=== PATIENT | male | born 1950 | race Caucasian/White ===

== ENCOUNTER 2016-05-29 05:58 | Inpatient (IN) | payer BC ==
[2016-04-23 09:04] VITALS: BMI 33.0
--- NOTE | 2016-04-23 09:46 | PAT Medication Instructions ---
Service Date Apr 23, 2016. Current Home Medication List Amlodipine (Norvasc), 10 MG PO QPM Atorvastatin (Lipitor), 20 MG PO HS Lisinopril (Zestril), 20 MG PO QAM Metoprolol Succ (Toprol Xl) (Toprol-Xl), 50 MG PO QAM Tramadol (Ultram), 50 MG PO BID [Vitapulse], 1 TAB PO QAM Medication Instructions For Your Scheduled Surgery - Hold the following medications 7 days prior to surgery: Vitapulse 1 TAB PO QAM - Hold the following medications the morning of surgery: Lisinopril (Zestril), 20 MG PO QAM - Take the following medications the morning of surgery with a sip of water: Tramadol (Ultram), 50 MG PO BID (can take up to four hours prior to surgery if needed) Metoprolol Succ (Toprol Xl) (Toprol-Xl), 50 MG PO QAM - Take the following medications as scheduled the night before surgery: Tramadol (Ultram), 50 MG PO BID Atorvastatin (Lipitor), 20 MG PO HS Amlodipine (Norvasc), 10 MG PO QPM If you have any questions please call us at [phone] or [phone] ( Madeleine) or [phone]
[2016-04-23 10:44] LABS: BASO % 0.7 %; BASO ABS # 0.03 K/uL (0-0.2); COMPLETE YES; EOS % 0.7 %; HEMATOCRIT 42.5 % (42-52); IG% 0.2 %; LYMPH % 25.4 %; MEAN CELL VOLUME 95.1 fL (80-100); MEAN CORPUSCULAR HEMOGLOBIN 33.3 pg (25-34); MEAN CORPUSCULAR HGB CONC 35.1 g/dl (32-36); MEAN PLATELET VOLUME 9.9 fL (7.4-10.4); MONO % 15.7 %; NEUT % 57.3 %; PLATELET COUNT 241 K/uL (130-400); RED BLOOD COUNT 4.47 M/uL (4.7-6.1); WHITE BLOOD COUNT 4.33 K/uL (4.8-10.8)
--- NOTE | 2016-04-23 10:45 | DIAGNOSTIC IMAGING REPORT ---
CHEST PREADMISSION(PA/LAT) CLINICAL HISTORY: Preoperative evaluation. COMPARISON STUDY: Chest radiograph March 14, 2015. FINDINGS: Lung volumes are normal. There is no pneumothorax or pleural effusion. There is no consolidation or evidence of pulmonary edema. Healed left rib fractures are noted. Cardiomediastinal silhouette is normal. IMPRESSION: No acute cardiopulmonary findings. Electronically signed by: Kyree Ignacio M.D. 04/23/2016 10:44 AM
[2016-04-23 10:57] LABS: PARTIAL THROMBOPLASTIN RATIO 1.2; PROTHROMBIN TIME (PATIENT) 10.6 SECONDS (9.0-12.0)
[2016-04-23 11:18] LABS: BUN/CREATININE RATIO 20.1 (10-20); CALCIUM 9.6 mg/dl (8.5-10.1); CREATININE 0.88 mg/dl (0.60-1.40); POTASSIUM 4.6 mmol/L (3.5-5.1)
[2016-04-23 11:55] LABS: ESTIMATED AVERAGE GLUCOSE 108 mg/dl; HA1C FLAG Normal (Normal)
--- NOTE | 2016-05-28 10:36 | HISTORY & PHYSICAL EXAMINATION ---
DATE OF ADMISSION: 05/29/2016 CHIEF COMPLAINT: Left hip pain. HISTORY OF PRESENT ILLNESS: The patient is a 65-year-old gentleman with known osteoarthritis about his left hip. He had a previous right total hip arthroplasty in 2015. He has done well after this procedure. He continues to have significant pain and disability with his left hip and now desires to proceed with left total hip arthroplasty. PAST MEDICAL HISTORY: Hypertension, hypercholesterolemia, irregular heartbeat, sleep apnea, osteoarthritis, hiatal hernia, obesity. PAST SURGICAL HISTORY: Cardiac ablation for afib, low back surgery, right hip as above. MEDICATIONS: Metoprolol 50 mg daily, atorvastatin 20 mg daily, amlodipine 10 mg daily, lisinopril 20 mg daily, tramadol p.r.n. ALLERGIES: No known drug allergies. SOCIAL HISTORY: He states significant weekly alcohol consumption. REVIEW OF SYSTEMS: Noncontributory. PHYSICAL EXAMINATION: GENERAL: Well-nourished, well-developed male who appears his stated age. HEENT: Normocephalic, atraumatic, extraocular movements intact, oropharynx pink and moist. NECK: Supple without adenopathy. LUNGS: Clear to auscultation bilaterally. HEART: Regular rate and rhythm. ABDOMEN: Soft, nontender, nondistended, obese. EXTREMITIES: The upper extremities are within normal limits. The left hip demonstrates limited range of motion. There is limitation of active and passive internal/external rotation with pain. X-RAYS: X-rays were reviewed. He has severe osteoarthritis about the left hip with complete loss of the joint space. There is collapse of the femoral head. There are osteophytes about the femoral head and acetabulum. ASSESSMENT: Left hip degenerative joint disease. PLAN: Risks versus benefits were discussed. Consent was obtained. The patient's primary care physician is Dr. Zhang from [place]. His route manager is Dr. Tang from [facility]. Will proceed with a left total hip arthroplasty upon preoperative workup and medical clearance.
[~2016-05-29] VITALS: Ht 175.3 cm; Wt 103.9 kg
[2016-05-29] VITALS (10 sets, daily range): BP systolic 58–128; BP diastolic 48–75; PULSE 59–67; TEMP 36.5–36.9; O2SAT 94–98; Ht 175.3 cm; Wt 103.9 kg
[~2016-05-29 05:58] MED LIST: AMLO-114 PO; ATOR-22 PO; LISI-725 PO; METO50TA7 PO; TRAM-10 PO; VITAPULSE PO
[2016-05-29] MEDS ORDERED: ROPIVACAINE 5MG/ML 30 ML 150 MG, BUPIVACAINE/EPINEPHR 0.5% MPF 30 ML, KETOROLAC TROMETH... INFIL SCH ×7 (06:00)
[2016-05-29] MEDS ORDERED: TRANEXAMIC ACID INJ 1,000 MG in SODIUM CHLORIDE 0.9% 100ML 100 ML IV SCH (06:00)
[2016-05-29] MEDS ORDERED: GABAPENTIN 300 MG CAP PO SCH ×2 (06:00)
[2016-05-29] MEDS ORDERED: DEXAMETHASONE 4 MG TAB PO SCH ×2 (06:00)
[2016-05-29] MEDS ORDERED: LACTATED RINGER'S 500 ML IV SCH (06:00)
[2016-05-29] MEDS ORDERED: ACETAMINOPHEN 500 MG TAB PO SCH ×2 (06:00)
[2016-05-29] MEDS ORDERED: CEFAZOLIN 2000 MG/60 ML D5W 60 ML IV SCH ×2 (06:00)
[2016-05-29] MEDS ORDERED: LACTATED RINGER'S 1000ML IV SCH ×4 (06:00→10:45)
[2016-05-29] MEDS ORDERED: METOCLOPRAMIDE HCL 10 MG TAB PO SCH ×2 (06:00)
[2016-05-29] MEDS ORDERED: CeleBREX 200 MG CAP PO SCH ×2 (06:00)
[2016-05-29] MEDS ORDERED: FAMOTIDINE 20 MG TAB PO SCH ×2 (06:00)
[2016-05-29] MEDS ORDERED: SCOPOLAMINE 1.5 MG TDSY TD SCH (06:00)
[2016-05-29] MEDS ORDERED: BUPIVACAINE 0.5 % 5 MG/1 ML PF 10ML VIAL ONE (06:36)
[2016-05-29] MEDS ORDERED: MIDAZOLAM HCL 1 MG/ML 2ML VIAL ONE (06:50)
[2016-05-29] MEDS ORDERED: FENTANYL CITRATE INJ 50 MCG/1 ML 2 ML VIAL ONE (06:50)
--- NOTE | 2016-05-29 06:50 | History & Physical Bridge Note ---
H&P Re-Evaluation Bridge Note: I have examined the patient, reviewed the History & Physical and in the interval since the performance of the History & Physical I have noted the following changes of clinical significance: No changes noted
[2016-05-29] MEDS: TRANEXAMIC ACID INJ 1,000 MG in SODIUM CHLORIDE 0.9% 100ML 100 ML IV SCH ×2 (06:55→11:02)
[2016-05-29] MEDS ORDERED: ORTHO JOINT ANESTHETIC ONE (06:59)
[2016-05-29] MEDS ORDERED: KETOROLAC TROMETHAMINE 30 MG/ML VIAL IV. PRN (07:45)
[2016-05-29] MEDS ORDERED: ATROPINE SULFATE 0.1 MG/ML 5ML SYR IV PRN (07:45)
[2016-05-29] MEDS ORDERED: ONDANSETRON INJ 2 MG/ML 2 ML VIAL IV PRN ×2 (07:45→09:00)
[2016-05-29] MEDS ORDERED: HYDROmorphone INJ 2 MG/ML SYR/VIAL IV PRN (07:45)
[2016-05-29] MEDS ORDERED: EpHEDrine SULFATE INJ 50 MG/ML AMP IV PRN (07:45)
[2016-05-29] MEDS ORDERED: PHENYLEPHRINE 100MCG/ML 5ML SYR IV PRN (07:45)
[2016-05-29] MEDS ORDERED: PROPOFOL IV EMULSION 10 MG/ML 20 ML VIAL IV ONE (07:56)
--- NOTE | 2016-05-29 08:18 | [facility] Post Operative Brief Note ---
Immediate Operative Summary Operative Date May 29, 2016. Pre-Operative Diagnosis Left Hip degenerative Joint Disease Post-Operative Diagnosis Same as Preop Procedure(s) Performed Left Total Hip Arthroplasty Uncemented Surgeon Dr. Hernandes Cable Engineer Outside Plant Surgeon(s) Zaheer Chandler PA-C Estimated Blood Loss 100 ML Findings severe oa Specimens A. Left Femoral Head Disposition Recovery Room / PACU
[2016-05-29] MEDS ORDERED: POVIDONE-IODINE OP SOLN 30 ML BTL TOP ONE (08:20)
[2016-05-29] MEDS ORDERED: BACITRACIN 50000 UNIT VIAL IR ONE (08:24)
--- NOTE | 2016-05-29 08:30 | OPERATIVE REPORT ---
DATE OF OPERATION: 05/29/2016 PREOPERATIVE DIAGNOSIS: Osteoarthritis left hip. POSTOPERATIVE DIAGNOSIS: Osteoarthritis left hip. PROCEDURE: Left connective total hip arthroplasty. SURGEON: Dr. Hernandes. DIRECTOR OF COUNSELING: Zaheer Chandler PA-C. ANESTHESIA: Spinal. COMPLICATIONS: None. OPERATION AND FINDINGS: PROCEDURE: Following induction of adequate spinal anesthesia, the patient was placed in right lateral decubitus position and left Heidi-Langenbeck incision was made. Subcutaneous tissue was sharply dissected. Electrocautery used for hemostasis. The fascia was incised throughout the length of the wound and a ely scissor placed beneath the short external rotators. The pyriformis was tagged with #1 Vicryl. The short external rotators were divided from the posterior aspect of the femur using electrocautery. These were swept posteriorly. A T-capsulotomy incision was made and the hip was dislocated using a combination of flexion, adduction, and internal rotation. Exposure of the femoral neck with old-style Hohmann and a blunt Hohmann was carried out and a femoral rasp was utilized as a guide for making the appropriate level femoral neck cut. This bone fragment was removed and reserved on the back table. Next, attention was turned to the acetabulum where bone hook was used to retract the femur while the offset retractors were placed anterior and posteriorly. A double-angled Hohmann was placed in superior and anterior position exposing the acetabulum nicely. Acetabular labrum as well as posterior capsule elements were removed using a long knife and a long pickup. Fovea centralis was cleared of all soft tissue. Sequential reamings were carried up to a 56 and decision was made to proceed with impaction of a 56 trabecular metal cup. This was impacted and held using a single 35 mm bone screw. The acetabular liner was placed with 15 of elevated posterior wall in the superior and posterior position. Next, attention was turned to the femoral portion of the case where a Bovie and pickup was used to further clear short external rotators from their insertion on the femur. Box osteotome was used to gain access to the femoral canal and the T-handled rasp and a rattail rasp were used to further open and lateral the canal. Sequentially raspings were carried up to a 56 which gave good fit and fill of the proximal femur. A trial reduction was carried out and 6 offset femoral neck component was chosen as the size to be used. A +0 x 36 mm ceramic femoral head was impacted into position, +0 head was utilized. The trial reduction was stable in all degrees of rotation with no [id number] impingement. The hip was dislocated. The trial components were removed and the final femoral stem, neck, and femoral head combination were assembled on the back table and impacted into position. Hip was relocated. Range of motion checked once again successful and the wound was irrigated. The pyriformis repaired to the greater trochanter using #1 Vicryl [id number] suture. A Hemovac drain was placed and the fascia was closed using #1 Vicryl, subcutaneous tissue was closed using 0 Dexon, and skin was closed with larissa. Sterile dressing of Adaptic, 4 x 4's, ABDs, and foam tape was applied. The patient tolerated the procedure well. Due to the complex nature of the procedure, the entire surgery was performed with the operational assistance of Zaheer Chandler PA-C. The dietetic assistant, under direct supervision, was involved in the actual performance of all aspects of the surgical procedure including hemostasis, tissue retraction and incision, instrument management, patient positioning, and wound closure. I attest to the content of the Intraoperative Record and any orders documented therein. Any exceptio ns are noted below.
[2016-05-29] MEDS ORDERED: ALUMINUM/MAGNESIUM/SIMETH (MAALOX MAX) 30 ML UDC PO PRN (09:00)
[2016-05-29] MEDS ORDERED: ZOLPIDEM TARTRATE 5 MG TAB PO PRN (09:00)
[2016-05-29] MEDS ORDERED: TAMSULOSIN HCL 0.4 MG CAP PO PRN (09:00)
[2016-05-29] MEDS ORDERED: METOCLOPRAMIDE HCL INJ 5 MG/ML 2 ML VIAL IV PRN (09:00)
[2016-05-29] MEDS ORDERED: OXYCODONE HCL IR 5 MG TAB (IMMEDIATE RELEASE) PO PRN (09:00)
[2016-05-29] MEDS ORDERED: MAGNESIUM HYDROXIDE SUSP 30 ML UDC PO PRN (09:00)
[2016-05-29] MEDS ORDERED: MoRPHine SULFATE 2 MG/ML CARP IV PRN (09:00)
--- NOTE | 2016-05-29 09:22 | Anesthesiology Progress Note ---
Anesthesia Post Op Note Date & Time May 29, 2016 at 09:21 Vital Signs Pain Intensity: 0 Vital Signs Past 12 Hours Date Time Temp Pulse Resp B/P Pulse Ox O2 Delivery O2 Flow Rate FiO2 05/29/16 09:10 109/60 05/29/16 09:10 109/60 05/29/16 09:08 48 19 05/29/16 09:08 48 19 05/29/16 09:08 50 19 99 05/29/16 09:08 50 19 99 05/29/16 09:03 51 14 05/29/16 09:03 51 14 05/29/16 09:03 54 14 112/68 92 05/29/16 09:03 54 14 112/68 92 05/29/16 08:58 53 14 110/65 94 05/29/16 08:58 53 14 05/29/16 08:58 53 14 110/65 94 05/29/16 08:58 53 14 05/29/16 08:53 59 11 117/63 97 05/29/16 08:53 53 11 05/29/16 08:53 53 11 05/29/16 08:53 59 11 117/63 97 05/29/16 08:49 116/63 05/29/16 08:49 116/63 05/29/16 08:48 36.3 58 12 108/66 96 Room Air 05/29/16 08:48 65 22 05/29/16 08:48 56 22 95 05/29/16 08:48 65 22 05/29/16 08:48 56 22 95 05/29/16 06:44 36.9 66 18 128/75 94 Room Air Notes Mental Status: alert / awake / arousable, participated in evaluation Pt Amnestic to Procedure: Yes Nausea / Vomiting: adequately controlled Pain: adequately controlled Airway Patency, RR, SpO2: stable & adequate BP & HR: stable & adequate Hydration State: stable & adequate Anesthetic Complications: no major complications apparent
--- NOTE | 2016-05-29 09:26 | DIAGNOSTIC IMAGING REPORT ---
SINGLE VIEW PELVIS CLINICAL HISTORY: Postoperative examination. FINDINGS: An AP portable view of the hips and lower pelvis is compared to pelvic radiograph dated 04/05/2015. A right hip arthroplasty is unchanged from previous. There is a new bipolar left hip arthroplasty in near-anatomic alignment. No acute fracture is seen. There are expected postoperative changes overlying the left hip including skin clips, subcutaneous gas, soft tissue swelling, and a surgical drain. IMPRESSION: Expected postoperative findings status post left hip arthroplasty. No acute fracture is seen. Electronically signed by: Sukh Floyd M.D. 05/29/2016 9:25 AM Dictated Date/Time: 05/29/2016 9:24 AM
[2016-05-29] MEDS: PANTOprazole SOD 40 MG TAB PO SCH (12:28)
[2016-05-29] MEDS: MULTIVITAMIN TAB PO SCH (12:28)
[2016-05-29] MEDS ORDERED: MoRPHine SULFATE 10 MG/ML CARP/VIAL IV PRN (13:00)
[2016-05-29] MEDS ORDERED: MoRPHine SULFATE 4 MG/ML 1 ML CARP\\VIAL IV PRN (13:00)
[2016-05-29] MEDS: D5W AND 1/2NSS + 20MEQ KCL 1,000 ML IV SCH ×2 (13:09→23:02)
[2016-05-29] MEDS: METOPROLOL SUCC 50MG EXT REL TAB PO SCH (13:09)
[2016-05-29] MEDS: ASPIRIN 81 MG ECTAB PO SCH ×2 (13:09→20:41)
[2016-05-29] MEDS: DOCUSATE SODIUM 100 MG CAP PO SCH ×2 (13:09→20:41)
[2016-05-29] MEDS: LISINOPRIL 20 MG TAB PO SCH (13:10)
[2016-05-29] MEDS: FERROUS GLUCONATE 324 MG TAB PO SCH ×2 (13:10→18:13)
[2016-05-29] MEDS: KETOROLAC TROMETHAMINE 30 MG/ML VIAL IV. SCH ×2 (14:12→20:20)
[2016-05-29] MEDS: CEFAZOLIN IV 2,000 MG in DEXTROSE 5% 50ML 50 ML IV SCH (15:30)
[2016-05-29] MEDS: ACETAMINOPHEN 500 MG TAB PO SCH (15:31)
[2016-05-29] MEDS ORDERED: CHECK SCOPOLAMINE PATCH PLACEMENT SCH (16:00)
[2016-05-29] MEDS: ATORVASTATIN 20 MG TAB PO SCH (20:41)
[2016-05-29] MEDS: AMLODIPINE BESYLATE 5 MG TAB PO SCH (20:42)
[2016-05-29] MEDS: PREGABALIN 75 MG CAP PO SCH (23:02)
[2016-05-30] MEDS: ACETAMINOPHEN 500 MG TAB PO SCH ×4 (00:25→23:44)
[2016-05-30] MEDS: CEFAZOLIN IV 2,000 MG in DEXTROSE 5% 50ML 50 ML IV SCH (00:25)
[2016-05-30] MEDS: KETOROLAC TROMETHAMINE 30 MG/ML VIAL IV. SCH ×2 (02:56→07:44)
[2016-05-30 03:00] VITALS: BP 122/68; PULSE 52; TEMP 36.7; O2SAT 96
[2016-05-30 06:11] LABS: COMPLETE YES; HEMATOCRIT 26.3 % (42-52); IG% 0.4 %; LYMPH ABS # 1.06 K/uL (1.2-3.4); MEAN CELL VOLUME 95.6 fL (80-100); MEAN CORPUSCULAR HEMOGLOBIN 33.5 pg (25-34); MEAN PLATELET VOLUME 9.9 fL (7.4-10.4); MONO % 18.1 %; NEUT % 67.5 %; PLATELET COUNT 185 K/uL (130-400); RED BLOOD COUNT 2.75 M/uL (4.7-6.1); WHITE BLOOD COUNT 7.57 K/uL (4.8-10.8)
[2016-05-30 06:43] LABS: BUN/CREATININE RATIO 28.6 (10-20); CALCIUM 8.2 mg/dl (8.5-10.1); CREATININE 0.91 mg/dl (0.60-1.40); POTASSIUM 4.4 mmol/L (3.5-5.1)
[2016-05-30 07:30] VITALS: BP 124/69; PULSE 68; TEMP 36.9; O2SAT 98
[2016-05-30] MEDS ORDERED: DEXAMETHASONE INJ 10 MG in SYRINGE 0 ML IV ONE (07:30)
--- NOTE | 2016-05-30 08:12 | Orthopedic Progress Note ---
Orthopedic Progress Note Date of Service May 30, 2016. Subjective Post OP Day: 1 Reports: feeling well Objective N/V intact, dressing C/D/I (Hemovac d/c'd), toes mobile Date Time Temp Pulse Resp B/P Pulse Ox O2 Delivery O2 Flow Rate FiO2 05/30/16 07:30 36.9 68 16 124/69 98 Room Air 05/30/16 03:00 36.7 52 16 122/68 96 Room Air 05/30/16 00:15 Room Air 05/29/16 23:57 36.7 67 16 100/53 95 Room Air 05/29/16 20:48 99/59 05/29/16 20:25 93/58 05/29/16 19:55 36.5 65 18 88/48 98 Room Air 05/29/16 16:05 Room Air 05/29/16 15:20 36.6 62 20 107/65 98 Room Air 05/29/16 13:16 62 16 105/66 98 Nasal Cannula 2.0 05/29/16 12:15 62 16 103/60 97 Nasal Cannula 2.0 05/29/16 11:43 36.7 62 16 110/63 97 2.0 05/29/16 11:15 97 Nasal Cannula 2.0 05/29/16 11:15 36.8 59 16 122/63 97 Nasal Cannula 2.0 05/29/16 11:15 Nasal Cannula 2.0 97 05/29/16 10:55 48 12 05/29/16 10:55 49 12 97 05/29/16 10:50 49 15 05/29/16 10:50 51 15 88 05/29/16 10:45 53 14 05/29/16 10:45 53 14 92 05/29/16 10:43 112/61 05/29/16 10:40 49 13 05/29/16 10:40 43 13 96 05/29/16 10:35 55 15 05/29/16 10:35 56 15 90 05/29/16 10:30 48 16 05/29/16 10:30 48 16 90 05/29/16 10:28 103/72 05/29/16 10:25 44 14 98 05/29/16 10:25 49 14 05/29/16 10:24 51 28 97 05/29/16 10:24 53 28 05/29/16 10:19 51 13 93 05/29/16 10:19 50 13 05/29/16 10:14 53 14 98 05/29/16 10:14 49 14 05/29/16 10:13 110/64 05/29/16 10:09 48 14 05/29/16 10:09 51 14 96 05/29/16 10:04 52 13 97 05/29/16 10:04 50 13 05/29/16 10:03 108/55 05/29/16 09:59 48 14 05/29/16 09:59 51 14 91 05/29/16 09:58 100/58 05/29/16 09:54 48 13 92 05/29/16 09:54 47 13 05/29/16 09:53 102/58 05/29/16 09:49 48 16 05/29/16 09:49 51 16 97 05/29/16 09:48 99/59 05/29/16 09:46 52 15 97 05/29/16 09:46 53 15 05/29/16 09:43 113/59 05/29/16 09:41 57 15 05/29/16 09:41 58 15 94 05/29/16 09:39 109/61 05/29/16 09:36 49 13 05/29/16 09:36 53 13 97 05/29/16 09:33 110/62 05/29/16 09:31 51 13 93 05/29/16 09:31 52 13 05/29/16 09:29 112/66 05/29/16 09:26 46 12 05/29/16 09:26 51 12 98 05/29/16 09:24 36.4 52 18 114/60 95 Nasal Cannula 2 05/29/16 09:23 114/60 05/29/16 09:21 56 14 97 05/29/16 09:21 46 14 05/29/16 09:18 120/59 05/29/16 09:16 52 17 05/29/16 09:16 53 17 99 05/29/16 09:13 107/65 05/29/16 09:12 109/60 05/29/16 09:11 47 23 05/29/16 09:11 51 23 98 05/29/16 09:10 109/60 05/29/16 09:10 109/60 05/29/16 09:08 48 19 1/26/17 09:08 48 19 05/29/16 09:08 50 19 99 05/29/16 09:08 50 19 99 05/29/16 09:03 51 14 05/29/16 09:03 51 14 05/29/16 09:03 54 14 112/68 92 05/29/16 09:03 54 14 112/68 92 05/29/16 08:58 53 14 110/65 94 05/29/16 08:58 53 14 05/29/16 08:58 53 14 110/65 94 05/29/16 08:58 53 14 05/29/16 08:53 59 11 117/63 97 05/29/16 08:53 53 11 05/29/16 08:53 53 11 05/29/16 08:53 59 11 117/63 97 05/29/16 08:49 116/63 05/29/16 08:49 116/63 05/29/16 08:48 36.3 58 12 108/66 96 Room Air 05/29/16 08:48 65 22 05/29/16 08:48 56 22 95 05/29/16 08:48 65 22 05/29/16 08:48 56 22 95 Laboratory Results 24 Hours: Test 05/30/16 05:20 White Blood Count 7.57 K/uL Red Blood Count 2.75 M/uL Hemoglobin 9.2 g/dL Hematocrit 26.3 % Mean Corpuscular Volume 95.6 fL Mean Corpuscular Hemoglobin 33.5 pg Mean Corpuscular Hemoglobin Concent 35.0 g/dl Platelet Count 185 K/uL Mean Platelet Volume 9.9 fL Neutrophils (%) (Auto) 67.5 % Lymphocytes (%) (Auto) 14.0 % Monocytes (%) (Auto) 18.1 % Eosinophils (%) (Auto) 0.0 % Basophils (%) (Auto) 0.0 % Neutrophils # (Auto) 5.11 K/uL Lymphocytes # (Auto) 1.06 K/uL Monocytes # (Auto) 1.37 K/uL Eosinophils # (Auto) 0.00 K/uL Basophils # (Auto) 0.00 K/uL Assessment & Plan Assessment: 65 yo male stable POD #1 s/p left KORY, acute blood loss anemia Plan: 1. Med management 2. DVT prophylaxis- ASA, TEDs, SCDs 3. PT/OT 4. D/C planning- home w/ HH
[2016-05-30] MEDS ORDERED: RXC5 PO (08:14)
[2016-05-30] MEDS ORDERED: ACET-1138 PO (08:14)
[2016-05-30] MEDS ORDERED: ONDA8TAB12 PO (08:14)
[2016-05-30] MEDS ORDERED: ASPEC81 PO (08:14)
[2016-05-30] MEDS ORDERED: CLB200 PO (08:14)
--- NOTE | 2016-05-30 08:16 | Discharge Instructions ---
Discharge Instructions Admission Reason for Admission: Left Hip Osteoarthritis Discharge Discharge Diagnosis / Problem: Left hip arthritis Discharge Goals Goal(s): Decrease discomfort, Improve function Activity Recommendations Activity Limitations: as noted below . Instructions / Follow-Up Instructions / Follow-Up ACTIVITY RECOMMENDATIONS: SELF CARE INSTRUCTIONS AFTER TOTAL HIP REPLACEMENT Until the incision and soft tissues around your hip have healed, there is a possibility that the hip prosthesis could dislocate. A. Observe the following precautions to prevent dislocation: 1. Don't bend your hip greater than 90 degrees. 2. Avoid crossing your legs or ankles while standing or lying. 3. Sit with your feet placed 6 inches apart. 4. When sitting, keep your knees below your hips. Sit on a firm surface, avoid deep, soft chairs and couches. Use an elevated toilet seat in the bathroom. 5. Don't bend over at the waist. Use a long handled shoehorn and a sock aid to help you put on your shoes and socks. A sr. director can help you fruit picker machine operator objects that are too high or too low to reach. 6. Keep car riding to a minimum for at least one month after surgery. B. Your balance may be shaky for a while. Use crutches or a walker until directed by your doctor. C. Use hand rails when walking on stairs. D. Wear low heeled shoes with non-slip soles. E. Be sure that your floors are free of things that could trip you - throw rugs , electrical cords, small objects. Avoid wet and waxed floors, especially with crutches and canes. F. Try to walk several times a day with rest periods between. G. Continue with all the exercises taught to you in the hospital. Again, make walking a part of your daily routine. SPECIAL CARE INSTRUCTIONS: VERY IMPORTANT TO READ AND REVIEW A. You may still be at risk for phlebitis and blood clots. 1. Wear surgical stockings (MERNA hose) for 2 weeks after surgery to improve circulation and reduce swelling. 2. Take Aspirin 81mg twice daily for 4 weeks or as directed by your doctor. This is your blood thinner. 3. High risk patients may be prescribed a stronger blood thinner if necessary. 4. If you are on Coumadin normally, your family doctor/director data analytics should monitor your blood work. Expect a phone call the day of or the day after bloodwork is drawn to adjust your dosage. B. You must take antibiotics before having dental work, bladder, bowel and other surgery. Your doctor will provide you with a permanent card to carry describing precautions. C. Call [facility] if you have a fever, redness or swelling around the incision, cloudy drainage from incision, or sudden increase in pain in your hip, not relieved by your regular pain medication. D. Please call the office at if you have any concerns or questions about your operation or recovery. * YOU MAY SHOWER, NO TUB BATHS UNTIL CLEARED BY YOUR DOCTOR. * WEAR MERNA HOSE 20 HOURS PER DAY FOR 2 WEEKS. * YOU SHOULD USE A WALKER OR CRUTCHES FOR 2-4 WEEKS. THIS WILL HELP PREVENT STRAIN ON YOUR HIP MUSCLE AND ALLOW IT TO HEAL PROPERLY. YOU MAY WEAN TO A CANE TOLERATED. * MOST PATIENTS WILL HAVE HOME NURSING FOR THERAPY. IF YOU DECIDE TO DO OUTPATIENT PHYSICAL THERAPY, PLEASE SCHEDULE THIS 3 TIMES PER WEEK. Silverlon- This is a large adhesive bandage that contains silver ions. This helps your incision heal by fighting off bacteria and protecting it from the outside environment. You are permitted to shower with this dressing. This will remain on your incision for 7 days and then should be removed. Some visible blood or drainage through the dressing window is normal. If there is significant drainage or leaking noted before the 7 days notify your doctor's office immediately. Once removed, keep incision clean and dry. If there is any drainage or redness noted, please call your surgeon. FOLLOW UP VISIT: If appointment is not already scheduled: Please call [facility] to make a follow-up appointment for 2 weeks after your surgery at . Current Hospital Diet Patient's current hospital diet: Regular Diet Discharge Diet Recommended Diet: Regular Diet Procedures Procedures Performed: Left Total Hip Arthroplasty Uncemented Pending Studies Studies pending at discharge: no Laboratory Results Hemoglobin A1c Test 04/23/16 09:50 Range/Units Estimated Average Glucose 108 mg/dl Hemoglobin A1c 5.4 4.5-5.6 % Medical Emergencies . Who to Call and When: Medical Emergencies: If at any time you feel your situation is an emergency, please call 911 immediately. . Non-Emergent Contact Non-Emergency issues call your: Surgeon Call Non-Emergent contact if: temperature is above 101.5, your pain is not controlled, wound has increased drainage, wound has increased redness . "Provider Documentation" section prepared by Zaheer Chandler PA-C. VTE Core Measure Inpt VTE Proph given/why not?: Other Anticoagulation (ASA 81mg bid), T.E.D. Stockings, SCD's
--- NOTE | 2016-05-30 08:48 | Anesthesiology Progress Note ---
Anesthesia Post Op Note Date & Time May 30, 2016 at 08:47 Vital Signs Pain Intensity: 1.0 Vital Signs Past 12 Hours Date Time Temp Pulse Resp B/P Pulse Ox O2 Delivery O2 Flow Rate FiO2 05/30/16 07:45 Room Air 05/30/16 07:30 36.9 68 16 124/69 98 Room Air 05/30/16 03:00 36.7 52 16 122/68 96 Room Air 05/30/16 00:15 Room Air 05/29/16 23:57 36.7 67 16 100/53 95 Room Air 05/29/16 20:48 99/59 Notes Mental Status: alert / awake / arousable, participated in evaluation Pt Amnestic to Procedure: Yes Nausea / Vomiting: adequately controlled Pain: adequately controlled Airway Patency, RR, SpO2: stable & adequate BP & HR: stable & adequate Hydration State: stable & adequate Neuraxial Anesthesia: was administered, sensory block resolved Anesthetic Complications: no major complications apparent
[2016-05-30] MEDS: ASPIRIN 81 MG ECTAB PO SCH ×2 (09:17→20:34)
[2016-05-30] MEDS: PREGABALIN 75 MG CAP PO SCH ×2 (09:17→20:48)
[2016-05-30] MEDS: METOPROLOL SUCC 50MG EXT REL TAB PO SCH (09:18)
[2016-05-30] MEDS: MULTIVITAMIN TAB PO SCH (09:18)
[2016-05-30] MEDS: LISINOPRIL 20 MG TAB PO SCH (09:18)
[2016-05-30] MEDS: PANTOprazole SOD 40 MG TAB PO SCH (09:18)
[2016-05-30] MEDS: FERROUS GLUCONATE 324 MG TAB PO SCH ×3 (09:18→17:54)
[2016-05-30] MEDS: DOCUSATE SODIUM 100 MG CAP PO SCH ×2 (09:19→20:34)
[2016-05-30 12:51] VITALS: BP 101/63; PULSE 71; TEMP 37; O2SAT 96
[2016-05-30 15:10] VITALS: BP 113/71; PULSE 69; TEMP 36.7; O2SAT 98
[2016-05-30] MEDS: AMLODIPINE BESYLATE 5 MG TAB PO SCH (20:36)
[2016-05-30] MEDS: CeleBREX 200 MG CAP PO SCH (20:37)
[2016-05-30] MEDS: ATORVASTATIN 20 MG TAB PO SCH (20:38)
[2016-05-30 22:55] VITALS: BP 99/56; PULSE 61; TEMP 36.7; O2SAT 96
[2016-05-31 07:56] VITALS: BP 122/74; PULSE 70; TEMP 36.7; O2SAT 98
[2016-05-31] MEDS: ACETAMINOPHEN 500 MG TAB PO SCH (08:48)
[2016-05-31] MEDS: LISINOPRIL 20 MG TAB PO SCH (08:48)
[2016-05-31] MEDS: FERROUS GLUCONATE 324 MG TAB PO SCH (08:48)
[2016-05-31] MEDS: DOCUSATE SODIUM 100 MG CAP PO SCH (08:48)
[2016-05-31] MEDS: MULTIVITAMIN TAB PO SCH (08:49)
[2016-05-31] MEDS: PANTOprazole SOD 40 MG TAB PO SCH (08:49)
[2016-05-31] MEDS: METOPROLOL SUCC 50MG EXT REL TAB PO SCH (08:49)
[2016-05-31] MEDS: CeleBREX 200 MG CAP PO SCH (08:49)
[2016-05-31] MEDS: ASPIRIN 81 MG ECTAB PO SCH (08:50)
[2016-05-31] MEDS: PREGABALIN 75 MG CAP PO SCH (08:51)
[2016-05-31 09:40] VITALS: O2SAT 98
[2016-05-31 09:57] VITALS: BP 122/74; PULSE 70; TEMP 36.7; O2SAT 98
--- NOTE | 2016-05-31 13:22 | Orthopedic Progress Note ---
Orthopedic Progress Note Date of Service May 31, 2016. Subjective Post OP Day: 2 Reports: feeling well, pain controlled w PO medications, Denies: SOB, calf pain , chest pain, light headedness, nausea / vomiting Objective calves soft nontender, N/V intact, hip located, capillary refill less than 2 sec., dressing C/D/I, A&O x3, toes mobile Date Time Temp Pulse Resp B/P Pulse Ox O2 Delivery O2 Flow Rate FiO2 05/31/16 09:57 36.7 70 16 98 Room Air 05/31/16 09:40 98 Room Air 05/31/16 07:56 36.7 70 16 122/74 98 Room Air 05/31/16 07:30 Room Air 05/30/16 23:45 Room Air 05/30/16 22:55 36.7 61 18 99/56 96 Room Air 05/30/16 15:40 Room Air 05/30/16 15:10 36.7 69 18 113/71 98 Room Air Assessment & Plan Assessment: 65 yo male stable POD #2 s/p left KORY, acute blood loss anemia Plan: 1. Med management 2. DVT prophylaxis- ASA, TEDs, SCDs 3. PT/OT 4. D/C planning- home w/ OPPT Inhouse Planning Pain Management: PO Tylenol, Oxy IR DVT Prophylaxis: TEDs, SCDs, ASA Discharge Planning Discharge Planning: home with oppt Therapy: Physical Therapy
--- NOTE | 2016-06-04 15:43 | DISCHARGE SUMMARY ---
CHIEF COMPLAINT: Left hip pain. Please see complete history and physical examination. HOSPITAL COURSE: The patient underwent left total hip arthroplasty without complication. He tolerated the procedure well and was discharged to the recovery room in stable condition. His postoperative course was relatively uneventful. His postoperative pain was reasonably well controlled with a combination of spinal anesthesia, intraoperative joint injection, IV, and oral pain medications. He was started on aspirin for DVT prophylaxis. He also utilized MERNA stockings and SCDs for additional prophylaxis. His H\H was stable and did not require transfusion. His surgical drain was discontinued by postoperative day 1. His surgical dressing will remain in place for approximately 7 days postoperative. He tolerated postoperative physical therapy reasonably well as he was ambulating and transferring appropriately. He was observing all total hip precautions. He was discharged home on postoperative day 2. He will continue his physical therapy as an outpatient. He will continue his aspirin for DVT prophylaxis and follow up in our office in approximately 10-14 days for his initial postop evaluation. NITHYA
== END 2016-05-31 11:33 | disposition home or self-care (01) | DRG 470 ==
LOC: ENRESERVDT → ENRESERVTM → C.ACU 05:58 → C.MSN 06:30
PROC: 0SRB0JA Replacement of Left Hip Joint with Synthetic Substitute, Uncemented, Open Approach (ICD-10-PCS; principal; 2016-05-29 07:30)
DX: M16.12 Unilateral primary osteoarthritis, left hip (principal); D62 Acute posthemorrhagic anemia; E66.9 Obesity, unspecified; E78.00 Pure hypercholesterolemia, unspecified; I10 Essential (primary) hypertension; G47.30 Sleep apnea, unspecified; I48.91 Unspecified atrial fibrillation